=== PATIENT | female | born 1930 | race Hispanic/Latino ===

== ENCOUNTER → 2017-09-21 | Outpatient (CLI) | payer OTHER, MEDICARE ==
[~2017-09-21] MED LIST: AEC81 PO; ASCO1TAB40 PO; CALC600T12 PO; CHOL50004 PO; CLOP75TA14 PO; HUMLIS7525 SQ; HYDR25TA PO; LOSA100T29 PO; METO-391 PO; MULT-40 PO; OMEG300C3 PO; RANO500T2 PO; ROSU10TA PO
== END | disposition home or self-care (01) ==
LOC: SHCH 10:18
PROVIDERS: ATTEND Internal Medicine Cardiovascular Disease
DX: I35.0 Nonrheumatic aortic (valve) stenosis (principal); I10 Essential (primary) hypertension
CPT/HCPCS: 93306

== ENCOUNTER → 2017-10-11 | Outpatient (CLI) | payer OTHER, MEDICARE | END | disposition home or self-care (01) | LOC: SHCH 11:56 | PROVIDERS: ATTEND Internal Medicine Cardiovascular Disease | DX: I25.10 Atherosclerotic heart disease of native coronary artery without angina pectoris (principal); I65.23 Occlusion and stenosis of bilateral carotid arteries | CPT/HCPCS: 93880 ==

== ENCOUNTER → 2017-10-18 | Outpatient (CLI) | payer OTHER, MEDICARE ==
[~2017-10-18] MED LIST changes: +IOPAMIDOL-370 100 ML VIAL IV ONE
== END | disposition home or self-care (01) ==
LOC: RAH 13:45
PROVIDERS: ATTEND Internal Medicine Cardiovascular Disease
DX: I80.203 Phlebitis and thrombophlebitis of unspecified deep vessels of lower extremities, bilateral (principal); I27.82 Chronic pulmonary embolism
CPT/HCPCS: 71275; 93970; Q9967

== ENCOUNTER → 2017-11-15 | Outpatient (CLI) | payer OTHER, MEDICARE ==
[~2017-11-15] VITALS: Ht 160 cm; Wt 74.8 kg
[~2017-11-15] MED LIST changes: -IOPAMIDOL-370 100 ML VIAL IV ONE; +REGADENOSON 0.4 MG/5 ML PF SYG IVP SCH
== END | disposition home or self-care (01) ==
LOC: SHCH 08:57
PROVIDERS: ATTEND Internal Medicine Cardiovascular Disease
DX: I99.8 Other disorder of circulatory system (principal); I25.10 Atherosclerotic heart disease of native coronary artery without angina pectoris; I10 Essential (primary) hypertension
CPT/HCPCS: 78452; 93017; 96374; A9500 ×2; J2785

== ENCOUNTER → 2017-11-23 | Outpatient (CLI) | payer OTHER, MEDICARE ==
[~2017-11-23] MED LIST changes: -REGADENOSON 0.4 MG/5 ML PF SYG IVP SCH
== END | disposition home or self-care (01) ==
LOC: SHCH 10:55
PROVIDERS: ATTEND Internal Medicine Cardiovascular Disease
DX: I73.9 Peripheral vascular disease, unspecified (principal)
CPT/HCPCS: 93925

== ENCOUNTER → 2018-10-20 | Outpatient (CLI) | payer OTHER, MEDICARE ==
[~2018-10-20] MED LIST changes: -ASCO1TAB40 PO; +ATOR20TA65 PO; -CALC600T12 PO; +CHOL200074 PO; -CHOL50004 PO; -CLOP75TA14 PO; +CLOP75TA32 PO; -HUMLIS7525 SQ; -HYDR25TA PO; +INSU100I13 SQ; -LOSA100T29 PO; -MULT-40 PO; -OMEG300C3 PO; +PANT40TA25 PO; -RANO500T2 PO; -ROSU10TA PO; +UBID200C37 PO
== END | disposition home or self-care (01) ==
LOC: SHCH 09:31
PROVIDERS: ATTEND Internal Medicine Cardiovascular Disease
DX: I08.0 Rheumatic disorders of both mitral and aortic valves (principal); I11.9 Hypertensive heart disease without heart failure
CPT/HCPCS: 93306

== ENCOUNTER 2019-03-22 04:02 | Observation (INO) | payer OTHER, MEDICARE ==
[~2019-03-22] VITALS: Ht 160 cm; Wt 72.1 kg
[2019-03-22] MEDS ORDERED: ONDANSETRON HCL 4 MG/2 ML VIAL ONE ×3 (04:07→08:24)
[2019-03-22 04:14] LABS: BASOPHILS % (AUTO) 0.2 % (0.0-5.0); EOSINOPHILS % (AUTO) 1.3 % (0.0-8.0); HEMATOCRIT 41.9 % (36-48); LYMPHOCYTES % (AUTO) 12.5 % (21.0-51.0); MEAN CORPUSCULAR HEMOGLOBIN 29.1 pg (27.0-33.0); MEAN CORPUSCULAR HGB CONC 32.8 g/dL (32.0-36.0); MEAN CORPUSCULAR VOLUME 88.8 fL (79-99); MONOCYTES % (AUTO) 3.2 % (3.0-13.0); NEUTROPHILS % (AUTO) 82.8 % (40.0-77.0); PLATELET COUNT (AUTO) 218 K/uL (130-400); RED BLOOD CELL COUNT(AUTO) 4.72 MIL/uL (4.00-5.50); RED CELL DISTRIBUTION WIDTH 16.4 % (11.0-15.5); WHITE BLOOD COUNT (AUTO) 17.3 K/uL (4.8-10.8)
[2019-03-22] MEDS ORDERED: ASPIRIN 325 MG TABLET ONE (04:14)
[2019-03-22 04:22] LABS: INR 0.94 (0.85-1.15); PARTIAL THROMBOPLASTIN TIME 22.3 SEC (26.3-35.5); PROTHROMBIN TIME 9.9 SEC (9.6-11.6)
[2019-03-22 04:26] LABS: BILIRUBIN,TOTAL 0.5 mg/dL (0.2-1.0); TOTAL PROTEIN, SERUM 6.9 g/dL (6.0-8.3)
[2019-03-22] MEDS ORDERED: NITROGLYCERIN 0.4 MG SL TAB SL ONE (04:47)
[2019-03-22] MEDS ORDERED: MORPHINE SULFATE 2 MG/ML 1ML SYG ONE (06:10)
[2019-03-22] MEDS ORDERED: HYDRALAZINE HCL 20 MG/ML VIAL ONE (08:24)
[2019-03-22] MEDS ORDERED: SODIUM CHLORIDE 0.9% 500ML 500 ML IV ONE (08:45)
[2019-03-22] MEDS ORDERED: ACETAMINOPHEN 325 MG TAB ONE (08:45)
[2019-03-22 08:52] LABS: BILIRUBIN,URINE Negative (NEGATIVE); COLOR,URINE Yellow (YELLOW); GLUCOSE, URINE (UA) Negative (NEGATIVE); KETONES,URINE Negative (NEGATIVE); LEUKOCYTE ESTERASE ,URINE Moderate (NEGATIVE); NITRATE,URINE Positive (NEGATIVE); OCCULT BLOOD,URINE Negative (NEGATIVE); PH,URINE 5.5 (5.0-8.0); PROTEIN,URINE POS 1+ mg/dL (NEGATIVE); UROBILINOGEN,URINE 0.2 mg/dL (0.2-1.0)
[2019-03-22 08:54] LABS: APPEARANCE,URINE HAZY (CLEAR)
[2019-03-22 08:57] LABS: BACTERIA,URINE Many /HPF (None Seen); RBC,URINE 0-1 /HPF (0-1); SQUAMOUS EPITHELIAL CELL,UR Rare /HPF (0-2)
[2019-03-22] MEDS ORDERED: IBUPROFEN 600 MG TABLET ONE (09:00)
[2019-03-22] MEDS ORDERED: SODIUM CHLORIDE 0.9% 50 ML IV ONE ×2 (09:36→11:25)
[2019-03-22] MEDS ORDERED: ACETAMINOPHEN 650 MG SUPPOSITORY RC ONE (10:48)
[2019-03-22 11:01] LABS: CREATINE KINASE, TOTAL 47 U/L (21-232); MYOGLOBIN 51 ng/mL (10-92); TROPONIN I < 0.04 ng/mL (0.00-0.06)
[2019-03-22] MEDS ORDERED: CEFTRIAXONE SODIUM 1 GM ONE (11:24)
[2019-03-22 15:36] VITALS: BP 101/51
[2019-03-22] MEDS ORDERED: HYDRALAZINE HCL 20 MG/ML VIAL IV PRN (15:45)
[2019-03-22] MEDS ORDERED: ACETAMINOPHEN 325 MG TAB PO PRN (15:45)
[2019-03-22] MEDS ORDERED: ONDANSETRON HCL 4 MG/2 ML VIAL IVP PRN (15:45)
[2019-03-22 16:39] LABS: CREATINE KINASE, TOTAL 57 U/L (21-232); MYOGLOBIN 165 ng/mL (10-92); TROPONIN I < 0.04 ng/mL (0.00-0.06)
[2019-03-22] MEDS ORDERED: OMEG-125 PO (18:53)
[2019-03-22] MEDS ORDERED: MAGNESIUM 2GM PREMIX 50ML 50 ML IV PRN (19:30)
[2019-03-22] MEDS ORDERED: POTASSIUM CHLORIDE 20MEQ/100ML 100 ML IV PRN (19:30)
[2019-03-22 19:35] VITALS: BP 103/42
[2019-03-22 19:59] LABS: CREATININE 1.5 mg/dL (0.5-1.5); POTASSIUM 4.4 mmol/L (3.5-5.1)
[2019-03-22 20:04] LABS: ALBUMIN 3.4 g/dL (3.5-5.0); BILIRUBIN,TOTAL 0.6 mg/dL (0.2-1.0); TOTAL PROTEIN, SERUM 6.4 g/dL (6.0-8.3)
[2019-03-22] MEDS: METOPROLOL TARTRATE 25 MG TAB PO SCH (21:00)
[2019-03-23] VITALS: BP 104/44
[2019-03-23] MEDS ORDERED: SODIUM CHLORIDE 0.9% 1000ML 1,000 ML IV SCH (02:30)
[2019-03-23] MEDS ORDERED: SODIUM CHLORIDE 0.9% 1000ML 1,000 ML IV ONE (02:41)
[2019-03-23 03:32] VITALS: BP 129/53
[2019-03-23 04:31] LABS: HEMATOCRIT 37.4 % (36-48); MEAN CORPUSCULAR HEMOGLOBIN 29.5 pg (27.0-33.0); MEAN CORPUSCULAR HGB CONC 33.3 g/dL (32.0-36.0); MEAN CORPUSCULAR VOLUME 88.4 fL (79-99); NUCLEATED RED BLOOD CELLS 0.1 % (0.0-0.19); PLATELET COUNT (AUTO) 191 K/uL (130-400); RED BLOOD CELL COUNT(AUTO) 4.22 MIL/uL (4.00-5.50); RED CELL DISTRIBUTION WIDTH 16.2 % (11.0-15.5); WHITE BLOOD COUNT (AUTO) 10.5 K/uL (4.8-10.8)
[2019-03-23 05:02] LABS: ALBUMIN 3.2 g/dL (3.5-5.0); BILIRUBIN,TOTAL 0.7 mg/dL (0.2-1.0); POTASSIUM 3.6 mmol/L (3.5-5.1); TOTAL PROTEIN, SERUM 6.1 g/dL (6.0-8.3)
--- NOTE | 2019-03-23 07:30 | NUR ---
PATIENT UPDATE Report received that pt was admitted for gastroenteritis and uti, with chest pain as well as epigastric pain. Pt placed on npo status, noted the lactic acid initially at 2.8 then a 2nd one at 2.6. Pt not on any iv fluids while on npo status with an elevated lactic acid. Call placed to Bri Luu [facility] beginning at 2215 and again at around midnight. Mr. Luu finally returned the call at 0225, updated with the patient's ongoing status and ordered slow hydration with NS at 50 cc/hr . Patient slept fairly overnight, no abdominal pain, no nausea and vomiting, no diarrhea. Keeping npo,pending a kub this am.
[2019-03-23 08:00] VITALS: BP 159/68
[2019-03-23] MEDS ORDERED: ASPIRIN 81MG TAB.CHEW PO SCH (09:00)
[2019-03-23] MEDS: METOPROLOL TARTRATE 25 MG TAB PO SCH (09:52)
[2019-03-23 11:00] VITALS: BP 141/55
[2019-03-23] MEDS ORDERED: CEFTRIAXONE SODIUM 1 GM IVP SCH (11:00)
[2019-03-23] MEDS ORDERED: SIMETHICONE 80 MG TAB.CHEW PO SCH (13:00)
[2019-03-23 16:00] VITALS: BP 134/56
--- NOTE | 2019-03-23 17:48 | NUR ---
PT D/C HOME USING TEACH BACK TECHNIQUE RE; NEW MEDS AND HOME MEDS, S/S TO WATCH FOR AND WHEN TO CALL MD OR 911. RON GREGORIO CON [place] DOCTOR DE CABEZERA DENTRO DE 2-4 WELLS PARA QUE LA REFIERA CON UN GASTROENTEROLOGO POR DOLOR ABDOMINAL. RON GREGORIO CON UN GASTROENTEROLOGO POR DOLOR ABDOMINAL DENTRO DE DOMINIQUE (1) SEMANA. SI LE DA DOLOR DE PECHO O FALTA DE AIRE O DOLOR DE PECHO QUE NO SE LE RESUELVE CON DESCANSO HABLAR A 911. AAOX3, IV OUT INTACT, NO DISTRESS, NO SOB, NO ABD PAIN, TELE REMOVED.
== END 2019-03-23 18:02 | disposition home or self-care (01) ==
LOC: EDH 04:02 → EDHIP 09:30 → 4DH 15:18
PROVIDERS: ADMIT Internal Medicine Critical Care Medicine; ATTEND Internal Medicine Critical Care Medicine
DX: R07.89 Other chest pain (principal); R10.9 Unspecified abdominal pain; R11.2 Nausea with vomiting, unspecified; K56.600 Partial intestinal obstruction, unspecified as to cause; N39.0 Urinary tract infection, site not specified; I49.3 Ventricular premature depolarization; I44.7 Left bundle-branch block, unspecified; I25.10 Atherosclerotic heart disease of native coronary artery without angina pectoris; N20.0 Calculus of kidney; K57.30 Diverticulosis of large intestine without perforation or abscess without bleeding; I10 Essential (primary) hypertension; E11.9 Type 2 diabetes mellitus without complications; E78.5 Hyperlipidemia, unspecified; Z90.710 Acquired absence of both cervix and uterus; Z90.49 Acquired absence of other specified parts of digestive tract; Z95.1 Presence of aortocoronary bypass graft; Z95.5 Presence of coronary angioplasty implant and graft; Z79.02 Long term (current) use of antithrombotics/antiplatelets; Z79.82 Long term (current) use of aspirin; Z79.899 Other long term (current) drug therapy; Z88.5 Allergy status to narcotic agent
CPT/HCPCS: 36415 ×2; 71045; 74018; 74176; 80053 ×3; 81001; 82550 ×3; 82948 ×2; 83605 ×3; 83690; 83874 ×2; 84484 ×3; 85025; 85027; 85610; 85730; 87040 ×2; 87077; 87088; 87186; 93005 ×3; 96361; 96374; 99284; A4600; G0378 ×32; J0360; J0696 ×2; J2405 ×3; J7030; J7040

== ENCOUNTER → 2019-05-11 | Outpatient (CLI) | payer OTHER, MEDICARE ==
[~2019-05-11] VITALS: Ht 160 cm; Wt 73.5 kg
[~2019-05-11] MED LIST changes: +OMEG-125 PO; +REGADENOSON 0.4 MG/5 ML PF SYG IVP SCH
== END | disposition home or self-care (01) ==
LOC: SHCH 08:25
PROVIDERS: ATTEND Internal Medicine Cardiovascular Disease
DX: I11.9 Hypertensive heart disease without heart failure (principal)
CPT/HCPCS: 78452; 93017; 96374; A9500 ×2; J2785